=== PATIENT | female | born 1975 | race Caucasian/White ===

== ENCOUNTER 2016-09-24 18:00 | Emergency (ER) | payer OTHER ==
[~2016-09-24] VITALS: Ht 152.4 cm; Wt 75.0 kg
[2016-09-24 18:26] VITALS: BP 113/74; PULSE 80; RESP 16; O2SAT 99
--- NOTE | 2016-09-24 19:08 | ED.REPORT ---
HPI-Headache Date of Service Sep 24, 2016 ED Provider: Jeffery Dominguez MD Pt is a 41 y.o. female who presents to the ED c/o a worsening intermittent headache onset 3 days ago. Pt also reports associated right eye pain, redness, and pressure onset yesterday. Pt reports that she looked in the mirror at work and noticed that her eye was red. She states that she experiences eye pain with movement and it is worse when she is experiencing a headache. She denies blurred vision, loss of vision, cough, vomiting, slurred speech, fever, and weakness. Nursing Notes Stated Complaint: HEADACHE/EYE IRRITATION Chief Complaint: Neuro Symptoms/ Deficits Nursing Notes Reviewed: Yes Allergies: Uncoded Allergies: EGGS (Allergy, Severe, Anaphylaxis, 09/24/16) Scheduled PRN Ibuprofen (Ibuprofen) 800 Mg Tablet 800 MG PO TID PRN PRN For Pain General Time Seen by MD: 19:05 Chief Complaint Headache Hx Obtained From: Patient Arrived By: Walk-in Sudden in Onset?: Yes Onset Occurred: 3 days ago Symptom Duration: Intermittent Location: : Generalized Quality: Painful Severity: Current: No pain currently Severity: Maximum: Severe Recent Healthcare: No recent doctor visit, No recent hospitalization Similar Sx Previous: No Past Medical History Past Medical History None reported Past Surgical History None reported Ambulatory Status Independent Review of Systems Constitutional: Denies: Fever, Weakness - generalized Eyes: Reports: Eye pain right, Redness right, Denies: Blurred right, Visual loss right GI: Denies: Vomiting Neurologic: Reports: Headache, Denies: Slurred speech Complete sys rev & neg: except as marked. Respiratory: Denies: Non-productive cough Physical Exam Initial Vital Signs Vital Signs (First) Date Time Temp Pulse Resp B/P Pulse Ox O2 Delivery O2 Flow Rate FiO2 09/24/16 18:26 36.9 80 16 113/74 99 Room Air Initial VS: Reviewed Respiratory: Breath sounds normal, No respiratory distress Cardiovascular: Regular rate & rhythm, Intact distal pulses Abdomen / GI: No distention Extremities: Vascular intact, Neuro intact Skin: Warm, Dry, No cyanosis Psychiatric: Mood/affect normal, Behavior normal, Normal thought content General/Constitutional: Awake, Alert, No acute distress, Well appearing, Well developed, Well hydrated, Well nourished, Not toxic appearing Head / Eyes: Normocephalic, EOMI Conjunctiva / Sclera: Positive: Subconj hemorrhage right Neck: Atraumatic Neurologic: Oriented X3, Speech NL, CN II - XII intact Procedures Slit Lamp Exam Time: 19:42 Procedure Performed by: ED physician Which Eye: Right Dilating Agent & Anesthesia: Anesthesia: Tetracaine Eyelid / Conjunctiva / Sclera: Eyelid(s) normal Cornea/Ant Chamber/Iris/Lens: Cornea normal Re-Eval/Medical Decision Med Decision/Clinical Course 41-year-old female presenting complaining of blood in right eye times several days. Denies any trauma. Denies any foreign body sensation. Reports some discomfort but no pain. Denies any blurry vision. Neurological exam is completely normal. She has a subconjunctival hemorrhage on the right side. No corneal abrasion on fluorescein. No evidence of trauma or event other than hemorrhage as above. Patient can be safely discharged home with plan to follow up with primary doctor 1-2 days. No indication for antibiotics is no evidence of corneal abrasion or trauma. However she was given return precautions. Source of Hx: Old records Re-Evaluation/Progress : Time of Eval: 19:40 Re-Evaluation/Progress Note: Slit lamp procedure performed. Discussed diagnosis and plan for discharge, pt understands and agrees with plan. Counseled Regarding: Diagnosis Discharge & Departure Impression: Primary Impression: Subconjunctival hemorrhage of right eye Disposition: Home Discharge Condition All VS Reviewed: Yes Condition: Stable Patient Instructions: Subconjunctival Hemorrhage (ED) Additional Instructions: It appears that you have a subconjunctival hemorrhage of your right eye. I recommend you follow-up wiht your primary care provider in 1-2 days. Seek care if you experience loss of vision, signs of infection, worsening headache, or any new or worsening symptoms. Referrals: [facility]OPCP (PCP) [facility] Kai Attestation Portions of this note were transcribed by Beth Harrington. I, Dr. Dominguez personally performed the history, physical exam and medical decision-making; I reviewed and confirmed the accuracy of the information in the transcribed note. Signed by: Kai Jj, 09/24/16 and 1944. copies to: [facility] Jeffery Dominguez MD Sep 24, 2016 19:07 BETH HARRINGTON Sep 24, 2016 19:16
[2016-09-24] MEDS ORDERED: 0.9% Sodium Chloride Inhalation Solution ONE (19:19)
[2016-09-24] MEDS ORDERED: Fluorescein 0.6 mg Ophthalmic Strip ONE (19:19)
[2016-09-24] MEDS ORDERED: Ketorolac 30 mg/mL 2 mL Inj IM ONE (19:20)
[2016-09-24] MEDS ORDERED: Tetracaine 0.5% 4 mL Ophthalmic Solution ONE (19:20)
[2016-09-24] MEDS ORDERED: HYDROcodone-APAP 10-325 mg PO ONE (19:25)
[2016-09-24] MEDS ORDERED: IBUP800T28 PO (19:45)
== END 2016-09-24 19:57 | disposition home or self-care (01) ==
LOC: SED 18:00
DX: H11.31 Conjunctival hemorrhage, right eye (principal); R51 Headache
CPT/HCPCS: 99283; G0463